=== PATIENT | male | born 1980 | race African-American/Black ===

== ENCOUNTER 2017-09-25 17:01 | Inpatient (IN) | payer OTHER ==
[~2017-09-25] VITALS: Ht 177.8 cm; Wt 62.0 kg
[2017-09-25 17:55] VITALS: BP 122/75; PULSE 54; RESP 18; TEMP 98.3; O2SAT 97
[2017-09-25] MEDS ORDERED: ALUMINUM/MAGNESIUM/SIMETH 30 ML CUP PO PRN (20:15)
[2017-09-25] MEDS ORDERED: diphenhydrAMINE HCL 50 MG CAP PO PRN (20:15)
[2017-09-25] MEDS ORDERED: MAGNESIUM HYDROXIDE SUSP 30 ML CUP PO PRN (20:15)
[2017-09-25] MEDS ORDERED: hydrOXYzine HCL 50 MG TAB PO PRN (20:15)
[2017-09-25] MEDS: NICOTINE 21 MG/24 HR PATCH T-DERMAL SCH (20:15)
[2017-09-26 06:00] VITALS: BP 128/76; PULSE 70; RESP 17; TEMP 97.8; O2SAT 99
[2017-09-26] MEDS: REMOVE OLD PATCH T-DERMAL SCH (09:00)
[2017-09-26] MEDS: NICOTINE 21 MG/24 HR PATCH T-DERMAL SCH (09:00)
[2017-09-26 09:19] LABS: BICARBONATE 28.4 MEQ/L (21.0-32.0); BLOOD UREA NITROGEN 8 MG/DL (7-18); CHLORIDE 107 MEQ/L (98-107); CREATININE 1.12 MG/DL (0.60-1.30); GLOMERULAR FILTRATION RATE 90 ML/MIN (>89); GLUCOSE,RANDOM 96 MG/DL (74-106); SODIUM (NA) 144 MEQ/L (136-145)
[2017-09-26 09:21] LABS: CHOLESTEROL 153 MG/DL (120-200)
[2017-09-26 09:30] LABS: CHOLESTEROL/ HDL RATIO 2.25 RATIO; HDL CHOLESTEROL 67.8 MG/DL (40.0-60.0); LDL CHOLESTEROL 58 MG/DL (0-99); TRIGLYCERIDES 137 MG/DL (42-150)
--- NOTE | 2017-09-26 10:28 | EKG ---
Date Performed: 09/26/2017 Time Performed: 10:11:35 PTAGE: 37 years EKG: SINUS BRADYCARDIA VOLTAGE CRITERIA FOR [facility] ST ELEVATION, MOST LIKELY EARLY REPOLARIZATION A BNORMAL ECG NO PREVIOUS TRACING DOCTOR: Jayme Richmond Interpretating Date/Time 09/26/2017 10:25:52
[2017-09-26 10:46] LABS: HEMOGLOBIN A1C 5.1 % (4.3-6.0)
--- NOTE | 2017-09-26 10:54 | HHI.HP ---
Provisional Diagnosis Admission Date Sep 25, 2017 at 17:42 Idanha I. Adjustment disorder with depressed mood, polysubstance dependence including marijuana, crack cocaine and alcohol Idanha II. Deferred Idanha III. No significant medical history Certification of Person's Competence To Provide Express and Informed Consent I have personally examined Santosh Duran , a person being served at [facility] on, Sep 26, 2017 10:46. Express and informed consent means consent voluntarily given in writing, by a competent person, after sufficient explanation and disclosure of the subject matter involved to enable the person to make a knowing and willful decision without any element of force, fraud, deceit, duress, or other form of constraint or coercion. This person is 18 years of age or older, is not now known to be incompetent to consent to treatment with a guardian advocate, and does not have a health care surrogate or proxy currently making medical treatment decisions. I have found this person to be one of the following: [x] Competent to provide express and informed consent, as defined above, for voluntary admission to this facility and is competent to provide express and informed consent for treatment. He/she has the consistent capacity to make well reasoned, willful, and knowing decisions concerning his or her medical or mental health treatment. The person fully and consistently understands the purpose of the admission for examination/placement and is fully capable of personally exercising all rights assured [place] Incompetent to provide express and informed consent to voluntary admission, and this is incompetent to provide express and informed consent to treatment. The person must be transferred to involuntary status and a petition for a guardian advocate filed with the Circuit Court. [] Refusing to provide express and informed consent to voluntary admission but is competent to provide express and informed consent for treatment. The person must be discharged or transferred to involuntary status. Form shall be completed within 24 hours of a person's arrival at the receiving facility and filed in the clinical record of each person: 1. Admitted on a voluntary basis 2. Permitted to provide express and informed consent to his/her own treatment 3. Allowed to transfer from involuntary to voluntary status 4. Prior to permitting a person to consent to his or her own treatment after having been previously found incompetent to consent to treatment. History of Present Illness Capacity: Has Capacity HPI The patient is a 37-year-old -[place] man, domiciled in [place] with his girlfriend, employed, with psychiatric history of polysubstance dependence including cocaine, marijuana, alcohol, he has no previous psychiatric hospitalizations, never been on the Mar[place] act before, no previous suicidal attempts, no significant medical history, who was transferred from [facility] in [place] on the [place] at due to expressing suicidal ideation to law- enforcement. On psychiatric evaluation today the patient is calm, cooperative. Patient explains that he does not really remember what happened and the circumstances in which he expressed suicidal ideation. He says that he was drunk and high in drugs. Patient reports that he has been drinking heavy in the last days. He reports that he has a good job, a very supportive girlfriend , he has not been depressed in the last days, "but I have been using crack, marijuana and alcohol". The patient says that he does not understand how he could be very correct for endorsing suicidality. Patient denies suicidal and was ideation at this moment, he denies visual and auditory hallucinations. He is fully oriented 3. No agitation, no aggressive behavior, no paranoia, no loosening of associations, no delirium, no delusions, no ideas of reference are present during this evaluation. The patient reports basically daily use of alcohol, occasional use of cannabis and crack cocaine Review of Systems Constitutional: DENIES: Diaphoretic episodes, Fatigue, Fever, Weight gain, Weight loss, Chills, Dizziness, Change in appetite, Night Sweats Endocrine: DENIES: Heat/cold intolerance, Polydipsia, Polyuria, Polyphagia Eyes: DENIES: Blurred vision, Diplopia, Eye inflammation, Eye pain, Vision loss , Photosensitivity, Double Vision Ears, nose, mouth, throat: DENIES: Tinnitus, Hearing loss, Vertigo, Nasal discharge, Oral lesions, Throat pain, Hoarseness, Ear Pain, Running Nose, Epistaxis, Sinus Pain, Toothache, Odynophagia Respiratory: DENIES: Apneas, Cough, Snoring, Wheezing, Hemoptysis, Sputum production, Shortness of breath Cardiovascular: DENIES: Chest pain, Palpitations, Syncope, Dyspnea on Exertion , PND, Lower Extremity Edema, Orthopnea, Claudication Gastrointestinal: DENIES: Abdominal pain, Black stools, Bloody stools, Constipation, Diarrhea, Nausea, Vomiting, Difficulty Swallowing, Anorexia Genitourinary: DENIES: Sexual dysfunction, Urinary frequency, Urinary incontinence, Urgency, Hematuria, Dysuria, Nocturia, Penile Discharge, Testicular Pain, Testicular Swelling Musculoskeletal: DENIES: Joint pain, Muscle aches, Stiffness, Joint Swelling, Back pain, Neck pain Integumentary: DENIES: Abnormal pigmentation, Nail changes, Pruritus, Rash Hematologic/lymphatic: DENIES: Bruising, Lymphadenopathy Immunologic/allergic: DENIES: Eczema, Urticaria Neurologic: DENIES: Abnormal gait, Headache, Localized weakness, Paresthesias, Seizures, Speech Problems, Tremor, Poor Balance Psychiatric: DENIES: Anxiety, Confusion, Mood changes, Depression, Hallucinations, Agitation, Suicidal Ideation, Homicidal Ideation, Delusions Past Psych History Violence risk - self (6 mos) Increased Substance Abuse History Drugs/Alcohol past 12 months Alcohol, cocaine and cannabis Past Family Social History Coded Allergies: No Known Allergies (Unverified , 09/25/17) Current Medications Medications (Trade) Dose Ordered Sig/Michael Route Start Time Stop Time Status Last Admin (Benadryl) 50 mg HS PRN PO 09/25/17 20:15 (Milk Of Magnesia Liq) 30 ml DAILY PRN PO 09/25/17 20:15 (Mag-Al Plus Susp Liq) 30 ml Q6H PRN PO 09/25/17 20:15 (Habitrol 21 Mg Patch.24 Hr) 1 patch DAILY T-DERMAL 09/25/17 20:15 (Atarax) 50 mg Q6H PRN PO 09/25/17 20:15 Miscellaneous Information 1 DAILY T-DERMAL 09/26/17 09:00 Family Psych History No family psychiatric history Social History Patient was born and raised in [place], he lives with his girlfriend in [place] , his employed in construction, his highest level of education is high school Patient's Strengths (min. 2) Verbal communication Physical Exam No tremors, no EPS, no stiffness, no psychomotor retardation or agitation Vital Signs Vital Signs Date Time Temp Pulse Resp B/P (MAP) Pulse Ox O2 Delivery O2 Flow Rate FiO2 09/26/17 06:00 97.8 70 17 128/76 (93) 99 Lab Results Test 09/26/17 07:58 Blood Urea Nitrogen 8 MG/DL Creatinine 1.12 MG/DL Random Glucose 96 MG/DL Calcium Level 9.0 MG/DL Sodium Level 144 MEQ/L Potassium Level 3.7 MEQ/L Chloride Level 107 MEQ/L Carbon Dioxide Level 28.4 MEQ/L Anion Gap 9 MEQ/L Estimat Glomerular Filtration Rate 90 ML/MIN Triglycerides Level 137 MG/DL Cholesterol Level 153 MG/DL LDL Cholesterol 58 MG/DL HDL Cholesterol 67.8 MG/DL Cholesterol/HDL Ratio 2.25 RATIO Thyroid Stimulating Hormone 3rd Gen 0.623 uIU/ML Mental Status Examination Appearance: Appropriate Consciousness: Alert Orientation: x4 Motor Activity: Normal gait Speech: Unremarkable Language: Adequate Fund of Knowledge: Adequate Attention and Concentration: Adequate Memory: Unremarkable Mood: Appropriate Affect: Appropriate Thought Process & Associations: Intact Thought Content: Appropriate Hallucination Type: None Delusion Type: None Suicidal Ideation: No Suicidal Plan: No Suicidal Intention: No Homicidal Ideation: No Homicidal Plan: No Homicidal Intention: No Insight: Adequate Judgment: Adequate Assessment & Plan Problem List: (1) Adjustment disorder with depressed mood ICD Codes: F43.21 - Adjustment disorder with depressed mood Assessment & Plan: On psychiatric evaluation today the patient denies symptoms of depression, he denies anxiety, he denies symptoms of uzair and psychosis. Patient denies suicidal and homicidal ideation, he denies visual and auditory hallucinations. However, the patient is unable to elaborate and explained the circumstances in which he expressed suicidal ideation to the police in [place]. He says that he does not remember because he was high in multiple psychoactive substances. Patient is up time contradictory insist to be minimizing recent suicidal ideation. He denies previous psychiatric history and hospitalizations, but reports polysubstance dependence. No collateral information has been contacted to this moment. Patient will be kept under hospitalization for longitudinal observation of mood and behavior in order to make a further determination of his disposition. No psychotropics at this moment. ice cream vault worker intervention for psychosocial assessment, collateral information, group and individual therapies, to coordinate safe discharge. Patient will sign voluntary admission. Assessment & Plan Estimated LOS: days Tayo Montanez MD Sep 26, 2017 10:54
[2017-09-26 17:54] VITALS: BP 116/65; PULSE 55; RESP 17; TEMP 97.8; O2SAT 98
[2017-09-27 06:13] VITALS: BP 139/69; PULSE 60; RESP 18; TEMP 97.9; O2SAT 97
[2017-09-27] MEDS: REMOVE OLD PATCH T-DERMAL SCH (09:00)
[2017-09-27] MEDS: NICOTINE 21 MG/24 HR PATCH T-DERMAL SCH (09:00)
--- NOTE | 2017-09-27 10:09 | HHI.PYPN ---
Subjective Remarks Reviewed electronic medical record discussed case with staff. Follow-up was conducted in patient's room. Patient reports that he has slept well his appetite has been good. He denies suicidal or homicidal ideation as well as auditory or visual hallucinations. His mood is good and his affect is euthymic. Mental Status Examination Appearance: Appropriate Consciousness: Alert Orientation: x4 Motor Activity: Normal gait Speech: Unremarkable Language: Adequate Fund of Knowledge: Adequate Attention and Concentration: Adequate Memory: Unremarkable Mood: Appropriate Affect: Appropriate Thought Process & Associations: Intact Thought Content: Appropriate Hallucination Type: None Delusion Type: None Suicidal Ideation: No Suicidal Plan: No Suicidal Intention: No Homicidal Ideation: No Homicidal Plan: No Homicidal Intention: No Insight: Adequate Judgment: Adequate Results Vitals/IOs Vital Signs Date Time Temp Pulse Resp B/P (MAP) Pulse Ox O2 Delivery O2 Flow Rate FiO2 09/27/17 06:13 97.9 60 18 139/69 (92) 97 Assessment & Plan Problem List: (1) Adjustment disorder with depressed mood ICD Codes: F43.21 - Adjustment disorder with depressed mood Assessment & Plan Estimated LOS: Continue with treatment plan as ordered. Attending psychiatrist will reevaluate tomorrow. Days Justification for Cont. Inpt. Moving this patient to a lower level of care would likely result in decompensation Vale Jewell Sep 27, 2017 10:09
[2017-09-27 17:38] VITALS: BP 122/68; PULSE 54; RESP 17; TEMP 97.3; O2SAT 100
[2017-09-28 06:22] VITALS: BP 150/60; PULSE 55; RESP 17; TEMP 98.2; O2SAT 96
[2017-09-28] MEDS: NICOTINE 21 MG/24 HR PATCH T-DERMAL SCH (09:00)
[2017-09-28] MEDS: REMOVE OLD PATCH T-DERMAL SCH (09:00)
--- NOTE | 2017-09-28 09:27 | HHI.DS ---
Psychiatry Discharge Summary Inpatient Psychiatric care?: Yes Advance Directive: No Reason Not Provided: Due to Patient Condition Mental Health AdvanceDirective: No Health Care Proxy: No Admission Admission Date Sep 25, 2017 at 17:42 Admission Diagnosis: (1) Adjustment disorder with depressed mood ICD Code: F43.21 - Adjustment disorder with depressed mood (2) Polysubstance abuse ICD Code: F19.10 - Other psychoactive substance abuse, uncomplicated Brief History The patient is a 37-year-old -[place] man, domiciled in [place] with his girlfriend, employed, with psychiatric history of polysubstance dependence including cocaine, marijuana, alcohol, he has no previous psychiatric hospitalizations, never been on the Marquez act before, no previous suicidal attempts, no significant medical history, who was transferred from [facility] in [place] on the [facility] at due to expressing suicidal ideation to law- enforcement. On psychiatric evaluation today the patient is calm, cooperative. Patient explains that he does not really remember what happened and the circumstances in which he expressed suicidal ideation. He says that he was drunk and high in drugs. Patient reports that he has been drinking heavy in the last days. He reports that he has a good job, a very supportive girlfriend , he has not been depressed in the last days, "but I have been using crack, marijuana and alcohol". The patient says that he does not understand how he could be very correct for endorsing suicidality. Patient denies suicidal and was ideation at this moment, he denies visual and auditory hallucinations. He is fully oriented 3. No agitation, no aggressive behavior, no paranoia, no loosening of associations, no delirium, no delusions, no ideas of reference are present during this evaluation. The patient reports basically daily use of alcohol, occasional use of cannabis and crack cocaine Tobacco Use In Past 30 Days: 5 or More Cigarettes/Day Alcohol Use: 2-4 Times Per Month Hospital Course Patient was admitted to a locked, inpatient psychiatric unit. Appropriate precautions were in place throughout patient's hospital stay. Patient was seen and examined on the unit by psychiatry and also visited by counselor. There was no evidence of any suicidality or homicidality on the inpatient unit. There was no evidence of self-care deficit. The patient remained in good behavioral control. On the day of discharge: Patient seen and examined with nurse. Chart reviewed, including documentation from outside hospital. Case discussed with nursing staff. No behavioral issues noted overnight On my examination today, the patient is calm and cooperative with evaluation. He is requesting discharge from the inpatient psychiatric unit today. He adamantly denies any suicidal or homicidal ideation, intent or plan on direct questioning and contracts for safety. He insists that his presenting Tylenol overdose was related to intoxication with benzodiazepine, namely Klonopin. He says that he had been abusing Klonopin and has no recollection of making the overdose. He says that things have been going really well in his life and he wants to live for his new job with the [employer] in [place], his girlfriend, his pets and his house. I can elicit no depressive or hypomanic/manic symptoms in this patient at this time. He denies any audiovisual hallucinations. I can elicit no paranoia, no ideas of reference, no thought insertion or withdrawal or other delusional material. 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 He denies a history of previous suicide attempts, although the chart indicates patient may have tried to hang himself 2 weeks ago. He denies a family history of mental illness or suicide. He does admit to recent use of cannabis, cocaine, amphetamine and benzodiazepine although he denies any withdrawal symptoms at this time. He denies any access to guns or firearms. He has no physical complaints. With the patient's permission, I have obtained collateral information from his girlfriend Gissell Juares at [phone]. She notes that the two have been together for 2 years. She concurs with patient's assessment that presenting overdose was wholly related to use of benzodiazepine. She knows of no previous history of self-harm by patient. She has no concerns about the patient being a risk of harm to himself or others at this point. I have recommended that patient's girlfriend secure the home environment of all potential means of harm to self or others including but not limited to guns, knives and medications out of an abundance of caution. I have also discussed with her the mechanisms to have the patient brought back for further psychiatric evaluation, should the need arise. Weighing the relevant factors and based on the available evidence, I electric drill operator that the patient does not meet criteria for involuntary psychiatric hospitalization at this time. Patient 's presenting psychiatric issues seem substance-induced. The patient has declined voluntary psychiatric hospitalization, and I have no basis to retain him over his objection at this time. Patient will be discharged home today with psychiatric follow-up as arranged by counselor. Patient is also to follow up with primary care. I have strongly recommended that he pursue chemical dependency evaluation and treatment on an outpatient basis and abstain from any substances of abuse. I have counseled the patient regarding warning signs for need to return to the psychiatric emergency room as part of a general safety plan. I have provided no prescriptions on discharge. Results Blood Pressure 150 / 60 Vital Signs Date Time Temp Pulse Resp B/P (MAP) Pulse Ox O2 Delivery O2 Flow Rate FiO2 09/28/17 06:22 98.2 55 17 150/60 (90) 96 Laboratory Tests Test 09/26/17 07:58 HDL Cholesterol 67.8 MG/DL (40.0-60.0) Laboratory Results Test 09/26/17 07:58 Cholesterol Level 153 MG/DL (120-200) HDL Cholesterol 67.8 MG/DL (40.0-60.0) Hemoglobin A1c 5.1 % (4.3-6.0) LDL Cholesterol 58 MG/DL (0-99) Triglycerides Level 137 MG/DL (42-150) Summary of Procedures None done Imaging None done Pending results at discharge: No Medications # of Antipsychotic meds at D/C: 1 Approp Antipsych med options 1 - Minimum of three failed multiple trials of monotherapy. 2 - Documented plan to taper to monotherapy due to previous use of multiple meds OR cross-taper in progress at D/C. 3 - Documentation of augmentation of Clozapine. 4 - Justification other than those listed in allowable values 1-3, document here : Discharge Discharge Date: Sep 28, 2017 Discharge Diagnosis: (1) Adjustment disorder with depressed mood Diagnosis: Principal (resolved) ICD Code: F43.21 - Adjustment disorder with depressed mood (2) Polysubstance abuse Diagnosis: Secondary (counseled to quit) ICD Code: F19.10 - Other psychoactive substance abuse, uncomplicated Pt Condition on Discharge: Fair Discharge Disposition: Discharge Home Discharge Instructions Diet Instructions: As Tolerated, No Restrictions Activities you can perform: Weight Bearing as Rogers Scheduled Appointment: As per counselors notes Discharge Time > 30 minutes Mental Status Examination Appearance: Appropriate Consciousness: Alert Orientation: x4 Motor Activity: Normal gait, Other (No motor abnormalities noted. No signs of intoxication or withdrawal noted.) Speech: Unremarkable Language: Adequate Fund of Knowledge: Adequate Attention and Concentration: Adequate Memory: Unremarkable (Grossly intact on clinical exam) Mood: Appropriate Affect: Appropriate Thought Process & Associations: Intact, Logical, Goal directed, Linear Thought Content: Appropriate Hallucination Type: None Delusion Type: None Suicidal Ideation: No Suicidal Plan: No Suicidal Intention: No Homicidal Ideation: No Homicidal Plan: No Homicidal Intention: No Insight: Adequate Judgment: Adequate Discharge/Advance Care Plan Health Problems: (1) Adjustment disorder with depressed mood Goals to promote your health * To prevent worsening of your condition and complications * To maintain your health at the optimal level Directions to meet your goals Take your medications as prescribed Follow your dietary instruction Follow activity as directed Keep your appointments as scheduled Take your immunizations and boosters as scheduled If your symptoms worsen call your PCP, if no PCP go to Urgent Care Center or Emergency Room For 22/12 questions related to your inpatient stay or results of tests pending at discharge, please contact Dr. Denis Marrufo at Smoking is Dangerous to Your Health. Avoid second hand smoking Denis Marrufo MD Sep 28, 2017 09:27
== END 2017-09-28 11:10 | disposition home or self-care (01) | DRG 881 ==
LOC: H270 17:42
PROVIDERS: ADMIT Psychiatry & Neurology Psychiatry; ATTEND Psychiatry & Neurology Psychiatry
DX: F43.21 Adjustment disorder with depressed mood (principal); F14.20 Cocaine dependence, uncomplicated; R45.851 Suicidal ideations; F10.20 Alcohol dependence, uncomplicated; F12.20 Cannabis dependence, uncomplicated; F13.10 Sedative, hypnotic or anxiolytic abuse, uncomplicated
CPT/HCPCS: 80048; 80061; 83036; 84443; 93005; Q0163